=== PATIENT | female | born 1980 | race African-American/Black ===

== ENCOUNTER 2023-03-21 09:31 | Emergency (ER) | payer OTHER ==
[2023-03-21] MEDS ORDERED: methylPREDNISolone Sodium Succinate 125 MG/2 ML SDV IM ONE (10:35)
[2023-03-21] MEDS ORDERED: Acetaminophen/HYDROcodone 325-5 MG Tab PO ONE (10:35)
[2023-03-21] MEDS ORDERED: Amoxicillin/Clavulanate K 875-125 MG Tab PO ONE (10:35)
[2023-03-21] MEDS ORDERED: Lidocaine 2% Viscous Solution 15 ML UD PO ONE (10:38)
[2023-03-21] MEDS ORDERED: Benzocaine 20% Topical Spray UD MUCMEM ONE (10:38)
[2023-03-21 10:54] LABS: CORONAVIRUS COVID-19 NAA NEGATIVE (NEGATIVE); INFLUENZA A NAA NEGATIVE (NEGATIVE); INFLUENZA B NAA NEGATIVE (NEGATIVE); RESPIRATORY SYNCYTIAL VIR NAA NEGATIVE (NEGATIVE)
== END 2023-03-21 11:05 | disposition home or self-care (01) ==
LOC: MW.ED 09:31
DX: K04.7 Periapical abscess without sinus (principal); Z20.822 Contact with and (suspected) exposure to COVID-19
CPT/HCPCS: 0241U; 87651; 96374; 99283; A9270; J2930

== ENCOUNTER 2024-04-26 17:45 | Emergency (ER) | payer BC, OTHER ==
[2024-04-26] MEDS: Lidocaine 1% 5 ML VIAL INJECT STA (17:58)
[2024-04-26] MEDS: Diphtheria,Pertussis(Acell),Tetanus Vaccine 0.5 ML Syringe IM ONE (18:07)
== END 2024-04-26 18:32 | disposition home or self-care (01) ==
LOC: MW.ED 17:45
DX: S60.552A Superficial foreign body of left hand, initial encounter (principal); Z75.8 Other problems related to medical facilities and other health care; Z79.899 Other long term (current) drug therapy; Z23 Encounter for immunization; W45.8XXA Other foreign body or object entering through skin, initial encounter
CPT/HCPCS: 10120; 90471; 90715; 99283; 99283-25; J3490

== ENCOUNTER 2024-08-01 15:33 | Emergency (ER) | payer SELFPAY ==
[2024-08-01] MEDS: Morphine 4 MG/ML Syringe IM ONE (16:06)
[2024-08-01] MEDS: Ondansetron 4 MG Tab.DIS PO ONE (16:06)
[2024-08-01] MEDS: Bacitracin Oint 1 GM U/D Packet TOP ONE (17:22)
== END 2024-08-01 17:29 | disposition home or self-care (01) ==
LOC: MW.ED 15:33
DX: T21.11XA Burn of first degree of chest wall, initial encounter (principal); T22.111A Burn of first degree of right forearm, initial encounter; T31.0 Burns involving less than 10% of body surface
CPT/HCPCS: 16020; 96372; 99283; A9270; J2270